=== PATIENT | female | born 1950 | race Caucasian/White ===

== ENCOUNTER 2021-04-13 04:30 | Inpatient (IN) ==
[2021-04-13] MEDS ORDERED: 0.9 % Sodium Chloride 1,000 ML IV ONE (04:36)
[2021-04-13] MEDS ORDERED: Ondansetron 4 MG/2 ML VIAL IVP ONE (04:36)
[2021-04-13 04:58] LABS: Basophils % 0.6 %; Eosinophils % 0.3 %; Hemoglobin 13.2 g/dL (11.5-15.4); Immature Granulocytes % 0.3 % (0-4); Lymphocytes % 30.1 %; Mean Corpuscular Hemoglobin 31.4 pg (28.0-33.3); Mean Corpuscular Volume 95.2 fL (83.0-100.0); Mean Platelet Volume 11.4 fL (9.4-12.4); Monocytes # 0.4 K/mcL (0.0-1.3); Neutrophils # 1.9 K/mcL (1.6-8.9); Platelet Count 118 K/mcL (140-400); Red Cell Distribution Width 14.2 % (11.5-14.5); Segmented Neutrophils % 56.7 %; White Blood Count 3.3 K/mcL (4.3-11.1)
[2021-04-13 05:19] LABS: Albumin 3.9 g/dL (3.5-5.7); Albumin/Globulin Ratio 1.1 (1.1-2.2); Bilirubin,Total 0.7 mg/dL (0.3-1.0); Calcium 8.3 mg/dL (8.6-10.3); Globulin 3.6 g/dL (2.4-3.5); Total Protein 7.5 g/dL (6.4-8.9)
[2021-04-13 05:26] LABS: Troponin I 0.05 ng/mL (< 0.04)
[2021-04-13] MEDS ORDERED: Isovue-370 500 ML BOTTLE IVP ONE (05:39)
[2021-04-13] MEDS ORDERED: Naloxone 0.4 MG/ML INJ IVP PRN (07:38)
[2021-04-13] MEDS ORDERED: Acetaminophen 325 MG TABLET PO PRN (07:38)
[2021-04-13] MEDS ORDERED: Dextrose Gel 15 GM/37.5 ML TUBE PO PRN ×2 (07:41)
[2021-04-13] MEDS ORDERED: *HR* Dextrose 50 % in Water (Syg) 50 ML SYRINGE IVP PRN (07:41)
[2021-04-13] MEDS ORDERED: D5% in Water 1,000 ML IVC PRN (07:41)
[2021-04-13] MEDS: Insulin LISPRO 300 UNITS/3 ML VIAL SUBQ SCH ×4 (09:05→20:06)
[2021-04-13] MEDS: Ondansetron 4 MG/2 ML VIAL IVP PRN (13:45)
[2021-04-13] MEDS: Pregabalin 50 MG CAPSULE PO SCH ×2 (13:45→20:05)
[2021-04-13] MEDS: *HR* Heparin 5,000 UNIT/ML VIAL SQ SCH ×2 (13:46→20:06)
[2021-04-13] MEDS: Ipratropium 1 PUFF INHALER IH SCH ×2 (15:29→22:56)
[2021-04-13] MEDS: Cholecalciferol (D-3) 1,000 UNIT (25MCG) TABLET PO SCH (20:05)
[2021-04-14 02:17] LABS: Basophils % 0.3 %; Eosinophils % 0.3 %; Hematocrit 34.5 % (35.3-44.9); Immature Granulocytes % 0.3 % (0-4); Lymphocytes % 31.3 %; Mean Corpuscular HGB Conc 33.6 g/dL (31.6-35.5); Mean Corpuscular Hemoglobin 31.7 pg (28.0-33.3); Mean Corpuscular Volume 94.3 fL (83.0-100.0); Mean Platelet Volume 11.2 fL (9.4-12.4); Monocytes # 0.4 K/mcL (0.0-1.3); Monocytes % 11.1 %; Neutrophils # 1.8 K/mcL (1.6-8.9); Platelet Count 125 K/mcL (140-400); Red Blood Count 3.66 M/mcL (3.82-4.97); Red Cell Distribution Width 14.4 % (11.5-14.5); Segmented Neutrophils % 56.7 %; White Blood Count 3.2 K/mcL (4.3-11.1)
[2021-04-14 02:27] LABS: Hemoglobin 11.6 g/dL (11.5-15.4)
[2021-04-14 02:34] LABS: Calcium 7.6 mg/dL (8.6-10.3); Magnesium 2.3 mg/dL (1.6-2.6); Phosphorous 2.6 mg/dL (2.7-4.5); Potassium 3.8 mEq/L (3.5-5.1)
[2021-04-14 02:37] LABS: Albumin 3.3 g/dL (3.5-5.7); Bilirubin,Direct 0.2 mg/dL (0.0-0.2); Bilirubin,Indirect 0.4 mg/dL (0.0-1.0); Bilirubin,Total 0.6 mg/dL (0.3-1.0); Globulin 3.3 g/dL (2.4-3.5); Total Protein 6.6 g/dL (6.4-8.9)
[2021-04-14 03:00] LABS: Platelet Estimate Normal (Normal)
[2021-04-14] MEDS: Ipratropium 1 PUFF INHALER IH SCH ×4 (04:10→19:37)
[2021-04-14] MEDS: *HR* Heparin 5,000 UNIT/ML VIAL SQ SCH ×3 (05:22→20:57)
[2021-04-14] MEDS: Insulin LISPRO 300 UNITS/3 ML VIAL SUBQ SCH ×4 (08:33→20:49)
[2021-04-14] MEDS: Loratadine 10 MG TABLET PO SCH (08:42)
[2021-04-14] MEDS: Cholecalciferol (D-3) 1,000 UNIT (25MCG) TABLET PO SCH ×2 (08:43→20:57)
[2021-04-14] MEDS: Pregabalin 50 MG CAPSULE PO SCH ×3 (08:43→20:57)
[2021-04-14] MEDS: BuPROPion XL (24 HR) 150 MG TABLET PO SCH (08:43)
[2021-04-14] MEDS ORDERED: Benzonatate 100 MG CAPSULE PO PRN (10:56)
[2021-04-14] MEDS: Dexamethasone Sodium Phos/PF 10 MG/ML VIAL IVP SCH (13:41)
[2021-04-15 00:41] LABS: Hemoglobin 12.2 g/dL (11.5-15.4); Mean Corpuscular Hemoglobin 31.4 pg (28.0-33.3); Mean Corpuscular Volume 95.4 fL (83.0-100.0); Mean Platelet Volume 11.2 fL (9.4-12.4); Platelet Count 137 K/mcL (140-400); Red Blood Count 3.88 M/mcL (3.82-4.97); Red Cell Distribution Width 14.4 % (11.5-14.5); White Blood Count 3.1 K/mcL (4.3-11.1)
[2021-04-15 02:06] LABS: BUN/Creatinine Ratio 18 (6-26); Blood Urea Nitrogen 31 mg/dL (8-23); C-Reactive Protein 61 mg/L (Less than 10); Calcium 7.8 mg/dL (8.6-10.3); Carbon Dioxide 17 mEq/L (23-29); Chloride 106 mEq/L (98-107); Ferritin 906 ng/mL (10-120); Glucose 166 mg/dL (70-105); Iron < 10 mcg/dL (50-170); Lactate Dehydrogenase 368 Units/L (140-271); Magnesium 2.6 mg/dL (1.6-2.6); Osmolality,Calculated 286 (280-300); Phosphorous 3.2 mg/dL (2.7-4.5); Potassium 4.4 mEq/L (3.5-5.1); Sodium 133 mEq/L (136-145); eGFR For African Americans 36 (> 60); eGFR For Non-African Americans 30 (> 60)
[2021-04-15 02:57] LABS: Transferrin 158 mg/dL (203-362)
[2021-04-15] MEDS: Ipratropium 1 PUFF INHALER IH SCH ×4 (03:33→21:33)
[2021-04-15] MEDS: *HR* Heparin 5,000 UNIT/ML VIAL SQ SCH ×3 (05:55→21:10)
[2021-04-15] MEDS: Dexamethasone Sodium Phos/PF 10 MG/ML VIAL IVP SCH (07:57)
[2021-04-15] MEDS: Cholecalciferol (D-3) 1,000 UNIT (25MCG) TABLET PO SCH ×2 (07:58→21:10)
[2021-04-15] MEDS: Pregabalin 50 MG CAPSULE PO SCH ×3 (07:58→21:10)
[2021-04-15] MEDS: Loratadine 10 MG TABLET PO SCH (07:59)
[2021-04-15] MEDS: Aspirin Enteric Coated 325 MG Tablet PO SCH (07:59)
[2021-04-15] MEDS: BuPROPion XL (24 HR) 150 MG TABLET PO SCH (07:59)
[2021-04-15] MEDS: Insulin LISPRO 300 UNITS/3 ML VIAL SUBQ SCH ×4 (08:01→21:10)
[2021-04-16 03:11] LABS: Hematocrit 40.5 % (35.3-44.9); Hemoglobin 12.9 g/dL (11.5-15.4); Mean Corpuscular HGB Conc 31.9 g/dL (31.6-35.5); Mean Corpuscular Hemoglobin 31.8 pg (28.0-33.3); Mean Corpuscular Volume 99.8 fL (83.0-100.0); Mean Platelet Volume 11.7 fL (9.4-12.4); Platelet Count 140 K/mcL (140-400); Red Blood Count 4.06 M/mcL (3.82-4.97); Red Cell Distribution Width 14.5 % (11.5-14.5)
[2021-04-16 03:15] LABS: White Blood Count 8.8 K/mcL (4.3-11.1)
[2021-04-16 03:17] LABS: Calcium 7.7 mg/dL (8.6-10.3); Potassium 4.6 mEq/L (3.5-5.1)
[2021-04-16] MEDS: Ipratropium 1 PUFF INHALER IH SCH ×4 (04:09→19:44)
[2021-04-16] MEDS: *HR* Heparin 5,000 UNIT/ML VIAL SQ SCH ×3 (05:42→21:31)
[2021-04-16] MEDS: Loratadine 10 MG TABLET PO SCH (09:11)
[2021-04-16] MEDS: Aspirin Enteric Coated 325 MG Tablet PO SCH (09:11)
[2021-04-16] MEDS: Cholecalciferol (D-3) 1,000 UNIT (25MCG) TABLET PO SCH ×2 (09:11→21:28)
[2021-04-16] MEDS: Pregabalin 50 MG CAPSULE PO SCH ×3 (09:11→21:29)
[2021-04-16] MEDS: BuPROPion XL (24 HR) 150 MG TABLET PO SCH (09:12)
[2021-04-16] MEDS: Insulin LISPRO 300 UNITS/3 ML VIAL SUBQ SCH ×4 (09:14→21:28)
[2021-04-16] MEDS: Dexamethasone Sodium Phos/PF 10 MG/ML VIAL IVP SCH (09:49)
[2021-04-16 10:36] LABS: Albumin 3.4 g/dL (3.5-5.7); Bilirubin,Direct 0.1 mg/dL (0.0-0.2); Bilirubin,Indirect 0.6 mg/dL (0.0-1.0); Bilirubin,Total 0.7 mg/dL (0.3-1.0); Globulin 3.4 g/dL (2.4-3.5); Total Protein 6.8 g/dL (6.4-8.9)
[2021-04-16 13:54] LABS: Adenovirus Not Detected (Not Detect); Bordetella Pertussis Not Detected (Not Detect); Chlamydophila pneumoniae Not Detected (Not Detect); Coronavirus 229E Not Detected (Not Detect); Coronavirus HKU1 Not Detected (Not Detect); Coronavirus NL63 Not Detected (Not Detect); Coronavirus OC43 Not Detected (Not Detect); Human Metapneumovirus Not Detected (Not Detect); Human Rhinovirus/Enterovirus Not Detected (Not Detect); Influenza A Subtype 2009 H1 Not Detected (Not Detect); Influenza B Not Detected (Not Detect); Mycoplasma pneumoniae Not Detected (Not Detect); Parainfluenza Virus 1 Not Detected (Not Detect); Parainfluenza Virus 2 Not Detected (Not Detect); Parainfluenza Virus 3 Not Detected (Not Detect); Parainfluenza Virus 4 Not Detected (Not Detect); Respiratory Syncytial Virus Not Detected (Not Detect)
[2021-04-16 13:57] LABS: SARS-CoV-2 DETECTED (Not Detect)
[2021-04-16] MEDS ORDERED: Remdesivir 200 MG in 0.9 % Sodium Chloride 100 ML IVPB ONE (15:00)
[2021-04-17] MEDS: Ipratropium 1 PUFF INHALER IH SCH ×4 (03:41→20:26)
[2021-04-17] MEDS: *HR* Heparin 5,000 UNIT/ML VIAL SQ SCH ×3 (06:31→19:52)
[2021-04-17] MEDS: Insulin LISPRO 300 UNITS/3 ML VIAL SUBQ SCH ×4 (07:45→22:18)
[2021-04-17] MEDS: Loratadine 10 MG TABLET PO SCH (09:02)
[2021-04-17] MEDS: Aspirin Enteric Coated 325 MG Tablet PO SCH (09:03)
[2021-04-17] MEDS: Cholecalciferol (D-3) 1,000 UNIT (25MCG) TABLET PO SCH ×2 (09:03→19:52)
[2021-04-17] MEDS: Pregabalin 50 MG CAPSULE PO SCH ×3 (09:03→19:51)
[2021-04-17] MEDS: BuPROPion XL (24 HR) 150 MG TABLET PO SCH (09:03)
[2021-04-17] MEDS: Dexamethasone Sodium Phos/PF 10 MG/ML VIAL IVP SCH (09:13)
[2021-04-17] MEDS ORDERED: Famotidine 20 MG/2 ML VIAL IVP ONE (12:29)
[2021-04-17] MEDS ORDERED: GuaiFENesin/Codeine Oral Soln 5 ML UDC PO PRN (12:31)
[2021-04-17] MEDS: Remdesivir 100 MG in 0.9 % Sodium Chloride 100 ML IVPB SCH (16:48)
[2021-04-17 17:46] LABS: Hemoglobin 12.3 g/dL (11.5-15.4); Mean Corpuscular HGB Conc 33.2 g/dL (31.6-35.5); Mean Corpuscular Hemoglobin 31.5 pg (28.0-33.3); Mean Corpuscular Volume 94.9 fL (83.0-100.0); Mean Platelet Volume 10.8 fL (9.4-12.4); Platelet Count 183 K/mcL (140-400); Red Cell Distribution Width 14.6 % (11.5-14.5); White Blood Count 8.1 K/mcL (4.3-11.1)
[2021-04-17 17:59] LABS: Albumin 3.2 g/dL (3.5-5.7); Albumin/Globulin Ratio 0.9 (1.1-2.2); Bilirubin,Direct 0.2 mg/dL (0.0-0.2); Bilirubin,Indirect 0.5 mg/dL (0.0-1.0); Bilirubin,Total 0.7 mg/dL (0.3-1.0); Calcium 7.8 mg/dL (8.6-10.3); Globulin 3.5 g/dL (2.4-3.5); Potassium 4.8 mEq/L (3.5-5.1); Total Protein 6.7 g/dL (6.4-8.9)
[2021-04-18] MEDS: Ipratropium 1 PUFF INHALER IH SCH ×4 (03:41→20:40)
[2021-04-18] MEDS: *HR* Heparin 5,000 UNIT/ML VIAL SQ SCH ×3 (05:11→21:30)
[2021-04-18 05:34] LABS: Basophils % 0.2 %; Hematocrit 39.2 % (35.3-44.9); Hemoglobin 12.8 g/dL (11.5-15.4); Lymphocytes % 11.5 %; Mean Corpuscular HGB Conc 32.7 g/dL (31.6-35.5); Mean Corpuscular Hemoglobin 30.9 pg (28.0-33.3); Mean Corpuscular Volume 94.7 fL (83.0-100.0); Monocytes # 0.4 K/mcL (0.0-1.3); Monocytes % 4.3 %; Neutrophils # 7.1 K/mcL (1.6-8.9); Platelet Count 199 K/mcL (140-400); Red Blood Count 4.14 M/mcL (3.82-4.97); Red Cell Distribution Width 14.4 % (11.5-14.5); White Blood Count 8.6 K/mcL (4.3-11.1)
[2021-04-18 05:51] LABS: Potassium 4.8 mEq/L (3.5-5.1)
[2021-04-18 05:53] LABS: Albumin 3.3 g/dL (3.5-5.7); Albumin/Globulin Ratio 0.9 (1.1-2.2); Bilirubin,Direct 0.2 mg/dL (0.0-0.2); Bilirubin,Indirect 0.5 mg/dL (0.0-1.0); Bilirubin,Total 0.7 mg/dL (0.3-1.0); Globulin 3.6 g/dL (2.4-3.5); Total Protein 6.9 g/dL (6.4-8.9)
[2021-04-18] MEDS: Insulin LISPRO 300 UNITS/3 ML VIAL SUBQ SCH ×4 (08:51→19:54)
[2021-04-18] MEDS ORDERED: dexAMETHasone 4 MG TABLET PO SCH (09:00)
[2021-04-18] MEDS: Loratadine 10 MG TABLET PO SCH (09:22)
[2021-04-18] MEDS: Cholecalciferol (D-3) 1,000 UNIT (25MCG) TABLET PO SCH ×2 (09:22→19:43)
[2021-04-18] MEDS: Pregabalin 50 MG CAPSULE PO SCH (09:22)
[2021-04-18] MEDS: Aspirin Enteric Coated 325 MG Tablet PO SCH (09:22)
[2021-04-18] MEDS: BuPROPion XL (24 HR) 150 MG TABLET PO SCH (09:23)
[2021-04-18] MEDS ORDERED: TOCILIZUMAB 800 MG in 0.9 % Sodium Chloride 100 ML IVPB ONE (12:00)
[2021-04-18] MEDS: Remdesivir 100 MG in 0.9 % Sodium Chloride 100 ML IVPB SCH (14:48)
[2021-04-18] MEDS: Pregabalin 75 MG CAPSULE PO SCH (19:43)
[2021-04-18] MEDS: Chloraseptic Spray 177 ML BOTTLE MM PRN (20:45)
[2021-04-18] MEDS ORDERED: Dexmedetomidine HCl 400 MCG/100 ML MLS IVC ONE (22:51)
[2021-04-18] MEDS ORDERED: Dexmedetomidine HCl 400 MCG/100 ML MLS IVC SCH (23:00)
[2021-04-18 23:49] LABS: ABG Base Excess -4 mEq/L (-2 to 3); ABG HCO3 21 mEq/L (21-27); ABG Oxygen Saturation 89 % (95-98); ABG PCO2 36 mmHg (35-45); ABG PH 7.38 pH Units (7.32-7.45); ABG PO2 58 mmHg (85-104); ABG TCO2 22 mEq/L (20-26)
[2021-04-19] MEDS: Ipratropium 1 PUFF INHALER IH SCH ×4 (03:40→19:46)
[2021-04-19] MEDS: *HR* Heparin 5,000 UNIT/ML VIAL SQ SCH ×3 (05:39→21:42)
[2021-04-19 06:47] LABS: Basophils % 0.2 %; Hematocrit 39.3 % (35.3-44.9); Hemoglobin 13.2 g/dL (11.5-15.4); Lymphocytes % 7.7 %; Mean Corpuscular HGB Conc 33.6 g/dL (31.6-35.5); Mean Corpuscular Hemoglobin 31.6 pg (28.0-33.3); Platelet Count 209 K/mcL (140-400); Red Blood Count 4.18 M/mcL (3.82-4.97); Red Cell Distribution Width 14.2 % (11.5-14.5); Segmented Neutrophils % 87.1 %; White Blood Count 9.2 K/mcL (4.3-11.1)
[2021-04-19 06:48] LABS: Lymphocytes # 0.7 K/mcL (0.6-4.6); Monocytes # 0.4 K/mcL (0.0-1.3)
[2021-04-19 07:08] LABS: Albumin 3.3 g/dL (3.5-5.7); Albumin/Globulin Ratio 0.8 (1.1-2.2); Bilirubin,Direct 0.2 mg/dL (0.0-0.2); Bilirubin,Indirect 0.5 mg/dL (0.0-1.0); Bilirubin,Total 0.7 mg/dL (0.3-1.0); Globulin 3.9 g/dL (2.4-3.5); Potassium 5.5 mEq/L (3.5-5.1); Total Protein 7.2 g/dL (6.4-8.9)
[2021-04-19] MEDS ORDERED: hydrALAZINE 10 MG TABLET PO PRN (08:31)
[2021-04-19] MEDS: Aspirin Enteric Coated 325 MG Tablet PO SCH (13:15)
[2021-04-19] MEDS: Loratadine 10 MG TABLET PO SCH (13:15)
[2021-04-19] MEDS: Pregabalin 75 MG CAPSULE PO SCH ×2 (13:16→21:49)
[2021-04-19] MEDS: Cholecalciferol (D-3) 1,000 UNIT (25MCG) TABLET PO SCH ×2 (13:16→21:49)
[2021-04-19] MEDS: BuPROPion XL (24 HR) 150 MG TABLET PO SCH (13:17)
[2021-04-19] MEDS: Insulin LISPRO 300 UNITS/3 ML VIAL SUBQ SCH (13:17)
[2021-04-19] MEDS ORDERED: Insulin LISPRO 300 UNITS/3 ML VIAL SUBQ SCH (15:00)
[2021-04-19] MEDS: Remdesivir 100 MG in 0.9 % Sodium Chloride 100 ML IVPB SCH (15:48)
[2021-04-19 16:04] LABS: Calcium 7.8 mg/dL (8.6-10.3); Potassium 5.3 mEq/L (3.5-5.1)
[2021-04-19] MEDS: Dexmedetomidine HCl 400 MCG/100 ML MLS IVC SCH ×2 (17:00→23:10)
[2021-04-19] MEDS: Insulin DETEMIR 100 UNIT/ML X5UNITS SUBQ SCH (21:42)
[2021-04-19] MEDS: QUEtiapine Fumarate 25 MG TABLET PO SCH (21:49)
[2021-04-20] MEDS: Insulin LISPRO 300 UNITS/3 ML VIAL SUBQ SCH ×4 (00:47→16:43)
[2021-04-20] MEDS: Ipratropium 1 PUFF INHALER IH SCH ×4 (03:42→20:12)
[2021-04-20] MEDS: *HR* Heparin 5,000 UNIT/ML VIAL SQ SCH ×3 (05:36→20:46)
[2021-04-20 06:05] LABS: Basophils % 0.2 %; Hematocrit 41.7 % (35.3-44.9); Hemoglobin 14.3 g/dL (11.5-15.4); Immature Granulocytes % 1.2 % (0-4); Lymphocytes # 0.7 K/mcL (0.6-4.6); Lymphocytes % 5.3 %; Mean Corpuscular HGB Conc 34.3 g/dL (31.6-35.5); Mean Corpuscular Hemoglobin 31.1 pg (28.0-33.3); Mean Corpuscular Volume 90.7 fL (83.0-100.0); Mean Platelet Volume 11.3 fL (9.4-12.4); Monocytes # 0.6 K/mcL (0.0-1.3); Monocytes % 4.9 %; Neutrophils # 11.3 K/mcL (1.6-8.9); Platelet Count 202 K/mcL (140-400); Red Cell Distribution Width 13.7 % (11.5-14.5); Segmented Neutrophils % 88.4 %; White Blood Count 12.8 K/mcL (4.3-11.1)
[2021-04-20 06:45] LABS: Albumin 3.2 g/dL (3.5-5.7); Albumin/Globulin Ratio 0.9 (1.1-2.2); Bilirubin,Direct 0.2 mg/dL (0.0-0.2); Bilirubin,Indirect 0.4 mg/dL (0.0-1.0); Bilirubin,Total 0.6 mg/dL (0.3-1.0); Calcium 8.4 mg/dL (8.6-10.3); Globulin 3.7 g/dL (2.4-3.5); Potassium 5.4 mEq/L (3.5-5.1); Total Protein 6.9 g/dL (6.4-8.9)
[2021-04-20] MEDS: Loratadine 10 MG TABLET PO SCH (08:29)
[2021-04-20] MEDS: Aspirin Enteric Coated 325 MG Tablet PO SCH (08:29)
[2021-04-20] MEDS: Pregabalin 75 MG CAPSULE PO SCH ×2 (08:31→20:46)
[2021-04-20] MEDS: BuPROPion XL (24 HR) 150 MG TABLET PO SCH (08:31)
[2021-04-20] MEDS: Cholecalciferol (D-3) 1,000 UNIT (25MCG) TABLET PO SCH ×2 (08:31→20:46)
[2021-04-20] MEDS: Dexmedetomidine HCl 400 MCG/100 ML MLS IVC SCH ×2 (11:24→20:45)
[2021-04-20] MEDS: Remdesivir 100 MG in 0.9 % Sodium Chloride 100 ML IVPB SCH (15:54)
[2021-04-20] MEDS: Chloraseptic Spray 177 ML BOTTLE MM PRN (16:46)
[2021-04-20] MEDS: Insulin DETEMIR 100 UNIT/ML X5UNITS SUBQ SCH (20:46)
[2021-04-20] MEDS: QUEtiapine Fumarate 25 MG TABLET PO SCH (20:46)
[2021-04-21] MEDS: Insulin LISPRO 300 UNITS/3 ML VIAL SUBQ SCH ×4 (00:37→18:27)
[2021-04-21] MEDS: Ipratropium 1 PUFF INHALER IH SCH ×4 (03:41→20:10)
[2021-04-21] MEDS: *HR* Heparin 5,000 UNIT/ML VIAL SQ SCH ×3 (05:52→20:31)
[2021-04-21] MEDS: Dexmedetomidine HCl 400 MCG/100 ML MLS IVC SCH ×3 (06:20→22:25)
[2021-04-21 06:48] LABS: Basophils % 0.1 %; Eosinophils % 0.1 %; Hematocrit 41.5 % (35.3-44.9); Hemoglobin 14.1 g/dL (11.5-15.4); Immature Granulocytes % 0.6 % (0-4); Lymphocytes # 0.8 K/mcL (0.6-4.6); Lymphocytes % 7.5 %; Mean Corpuscular Hemoglobin 31.1 pg (28.0-33.3); Mean Corpuscular Volume 91.6 fL (83.0-100.0); Mean Platelet Volume 11.4 fL (9.4-12.4); Monocytes # 0.4 K/mcL (0.0-1.3); Neutrophils # 9.5 K/mcL (1.6-8.9); Platelet Count 214 K/mcL (140-400); Red Blood Count 4.53 M/mcL (3.82-4.97); Segmented Neutrophils % 87.7 %; White Blood Count 10.8 K/mcL (4.3-11.1)
[2021-04-21 07:03] LABS: Albumin 3.2 g/dL (3.5-5.7); Albumin/Globulin Ratio 0.8 (1.1-2.2); Bilirubin,Direct 0.2 mg/dL (0.0-0.2); Bilirubin,Indirect 0.4 mg/dL (0.0-1.0); Bilirubin,Total 0.6 mg/dL (0.3-1.0); Calcium 8.6 mg/dL (8.6-10.3); Globulin 3.8 g/dL (2.4-3.5)
[2021-04-21] MEDS: Aspirin Enteric Coated 325 MG Tablet PO SCH (07:39)
[2021-04-21] MEDS: Cholecalciferol (D-3) 1,000 UNIT (25MCG) TABLET PO SCH ×2 (07:39→20:37)
[2021-04-21] MEDS: Loratadine 10 MG TABLET PO SCH (07:39)
[2021-04-21] MEDS: Pregabalin 75 MG CAPSULE PO SCH ×2 (07:39→20:37)
[2021-04-21] MEDS: BuPROPion XL (24 HR) 150 MG TABLET PO SCH (07:39)
[2021-04-21] MEDS: QUEtiapine Fumarate 25 MG TABLET PO SCH (20:37)
[2021-04-21] MEDS: Insulin DETEMIR 100 UNIT/ML X5UNITS SUBQ SCH (20:58)
[2021-04-22] MEDS: Insulin LISPRO 300 UNITS/3 ML VIAL SUBQ SCH ×5 (01:10→23:18)
[2021-04-22] MEDS: Ipratropium 1 PUFF INHALER IH SCH ×4 (03:37→20:01)
[2021-04-22] MEDS: *HR* Heparin 5,000 UNIT/ML VIAL SQ SCH ×3 (05:43→23:18)
[2021-04-22] MEDS: Dexmedetomidine HCl 400 MCG/100 ML MLS IVC SCH (05:55)
[2021-04-22] MEDS: Cholecalciferol (D-3) 1,000 UNIT (25MCG) TABLET PO SCH ×2 (08:48→20:19)
[2021-04-22] MEDS: Aspirin Enteric Coated 325 MG Tablet PO SCH (08:48)
[2021-04-22] MEDS: Loratadine 10 MG TABLET PO SCH (08:48)
[2021-04-22] MEDS: BuPROPion XL (24 HR) 150 MG TABLET PO SCH (08:48)
[2021-04-22] MEDS: Pregabalin 75 MG CAPSULE PO SCH ×2 (08:48→20:19)
[2021-04-22 14:28] LABS: Potassium 6.2 mEq/L (3.5-5.1)
[2021-04-22] MEDS: Ondansetron 4 MG/2 ML VIAL IVP PRN (14:42)
[2021-04-22] MEDS ORDERED: Haloperidol Lactate 5 MG/ML VIAL IVP PRN (14:59)
[2021-04-22 17:05] LABS: Basophils % 0.1 %; Eosinophils % 0.1 %; Hematocrit 44.2 % (35.3-44.9); Hemoglobin 14.5 g/dL (11.5-15.4); Lymphocytes # 0.5 K/mcL (0.6-4.6); Lymphocytes % 3.3 %; Mean Corpuscular HGB Conc 32.8 g/dL (31.6-35.5); Mean Corpuscular Hemoglobin 30.5 pg (28.0-33.3); Mean Corpuscular Volume 92.9 fL (83.0-100.0); Mean Platelet Volume 11.7 fL (9.4-12.4); Monocytes # 0.2 K/mcL (0.0-1.3); Monocytes % 1.5 %; Neutrophils # 13.4 K/mcL (1.6-8.9); Platelet Count 199 K/mcL (140-400); Red Blood Count 4.76 M/mcL (3.82-4.97); Red Cell Distribution Width 13.9 % (11.5-14.5); White Blood Count 14.3 K/mcL (4.3-11.1)
[2021-04-22] MEDS ORDERED: Furosemide 40 MG/4 ML VIAL IVP STA (17:36)
[2021-04-22] MEDS ORDERED: Calcium Gluconate 1gm/50mL 1 GM/50 ML BAG IVPB ONE (17:41)
[2021-04-22 18:47] LABS: VBG HCO3 18 mEq/L (21-27); VBG PCO2 27 mmHg (41-51); VBG PH 7.43 pH Units (7.32-7.42); VBG PO2 125 mmHg (25-50)
[2021-04-22 19:49] LABS: Calcium 8.9 mg/dL (8.6-10.3); Potassium 5.3 mEq/L (3.5-5.1)
[2021-04-22] MEDS: Insulin DETEMIR 100 UNIT/ML X5UNITS SUBQ SCH (20:19)
[2021-04-22] MEDS: QUEtiapine Fumarate 25 MG TABLET PO SCH (20:19)
[2021-04-22 22:15] LABS: Calcium 9.6 mg/dL (8.6-10.3); Potassium 5.1 mEq/L (3.5-5.1)
[2021-04-23] MEDS: Dexmedetomidine HCl 400 MCG/100 ML MLS IVC SCH ×3 (00:29→14:50)
[2021-04-23 01:02] LABS: Basophils % 0.1 %; Eosinophils % 0.2 %; Hematocrit 45.4 % (35.3-44.9); Hemoglobin 14.9 g/dL (11.5-15.4); Immature Granulocytes % 0.5 % (0-4); Lymphocytes # 0.6 K/mcL (0.6-4.6); Lymphocytes % 5.1 %; Mean Corpuscular HGB Conc 32.8 g/dL (31.6-35.5); Mean Corpuscular Hemoglobin 30.7 pg (28.0-33.3); Mean Corpuscular Volume 93.6 fL (83.0-100.0); Mean Platelet Volume 11.6 fL (9.4-12.4); Monocytes # 0.3 K/mcL (0.0-1.3); Monocytes % 2.4 %; Neutrophils # 11.6 K/mcL (1.6-8.9); Platelet Count 189 K/mcL (140-400); Red Blood Count 4.85 M/mcL (3.82-4.97); Red Cell Distribution Width 13.9 % (11.5-14.5); Segmented Neutrophils % 91.7 %; White Blood Count 12.6 K/mcL (4.3-11.1)
[2021-04-23 02:18] LABS: Calcium 9.4 mg/dL (8.6-10.3)
[2021-04-23] MEDS: Ipratropium 1 PUFF INHALER IH SCH ×4 (03:47→20:21)
[2021-04-23 04:57] LABS: ABG Base Excess -3 mEq/L (-2 to 3); ABG HCO3 21 mEq/L (21-27); ABG Oxygen Saturation 91 % (95-98); ABG PCO2 34 mmHg (35-45); ABG PO2 60 mmHg (85-104); ABG TCO2 22 mEq/L (20-26); Blood Gas Modality BiLevel
[2021-04-23] MEDS: *HR* Heparin 5,000 UNIT/ML VIAL SQ SCH ×3 (06:09→20:09)
[2021-04-23] MEDS: Insulin LISPRO 300 UNITS/3 ML VIAL SUBQ SCH ×4 (06:10→23:54)
[2021-04-23] MEDS: Aspirin Enteric Coated 325 MG Tablet PO SCH (07:27)
[2021-04-23] MEDS: Loratadine 10 MG TABLET PO SCH (07:27)
[2021-04-23] MEDS: BuPROPion XL (24 HR) 150 MG TABLET PO SCH (07:28)
[2021-04-23] MEDS: Pregabalin 75 MG CAPSULE PO SCH (07:28)
[2021-04-23] MEDS: Cholecalciferol (D-3) 1,000 UNIT (25MCG) TABLET PO SCH ×2 (07:28→19:21)
[2021-04-23] MEDS ORDERED: SODIUM ZIRCONIUM CYCLOSILICATE 5 GM POWD.PACK PO SCH (09:00)
[2021-04-23] MEDS ORDERED: Morphine Sulfate Oral CONC 10 MG/0.5 ML ORAL.SYG SL PRN (09:08)
[2021-04-23 09:19] LABS: Bacteria,Urine Few per hpf (None-Few); Bilirubin,Urine Negative (Negative); Blood,Urine Trace (Negative); Clarity,Urine Turbid (Clear); Color,Urine Light-Yellow (Yellow); Glucose,Urine (UA) Normal (Normal); Ketones,Urine Negative (Negative); Leukocyte Esterase,Urine Large (Negative); Mucus,Urine Few per lpf (None-Few); Nitrite,Urine Positive (Negative); Protein,Urine Trace mg/dL (Neg-Trace); RBC,Urine 0-3 per hpf (0-3); Specific Gravity,Urine 1.017 (1.010-1.025); Squamous Epithelial Cell,Urine Few per hpf (None-Few); Urobilinogen,Urine Normal (Normal); WBC,Urine 15-30 per hpf (0-3)
[2021-04-23] MEDS: Sodium Bicarbonate 150 MEQ in Water for inj. (sterile) 1,000 ML IVC SCH (09:49)
[2021-04-23 10:17] LABS: Potassium,Urine 43.1 mEq/L; Sodium, Urine 108.3 mEq/L
[2021-04-23] MEDS: Pantoprazole 40 MG VIAL IVP SCH (17:35)
[2021-04-23] MEDS: QUEtiapine Fumarate 25 MG TABLET PO SCH (19:21)
[2021-04-23] MEDS: Insulin DETEMIR 100 UNIT/ML X5UNITS SUBQ SCH (20:10)
[2021-04-23 21:28] LABS: Calcium 9.3 mg/dL (8.6-10.3); Phosphorous 6.3 mg/dL (2.7-4.5)
[2021-04-24 01:36] LABS: Basophils % 0.2 %; Eosinophils # 0.3 K/mcL (0.0-0.6); Hematocrit 53.5 % (35.3-44.9); Immature Granulocytes % 0.6 % (0-4); Lymphocytes # 0.6 K/mcL (0.6-4.6); Lymphocytes % 4.3 %; Mean Corpuscular HGB Conc 31.4 g/dL (31.6-35.5); Mean Corpuscular Hemoglobin 31.2 pg (28.0-33.3); Mean Corpuscular Volume 99.4 fL (83.0-100.0); Mean Platelet Volume 12.4 fL (9.4-12.4); Monocytes # 0.2 K/mcL (0.0-1.3); Monocytes % 1.4 %; Neutrophils # 13.7 K/mcL (1.6-8.9); Nucleated Red Blood Cells 0.1 /100 WBC (0); Platelet Count 153 K/mcL (140-400); Red Blood Count 5.38 M/mcL (3.82-4.97); Segmented Neutrophils % 91.5 %; White Blood Count 14.9 K/mcL (4.3-11.1)
[2021-04-24 01:40] LABS: Hemoglobin 16.8 g/dL (11.5-15.4)
[2021-04-24] MEDS: Dexmedetomidine HCl 400 MCG/100 ML MLS IVC SCH ×4 (04:00→20:03)
[2021-04-24] MEDS: Ipratropium 1 PUFF INHALER IH SCH ×4 (04:22→20:14)
[2021-04-24] MEDS: Pantoprazole 40 MG VIAL IVP SCH (05:27)
[2021-04-24] MEDS: *HR* Heparin 5,000 UNIT/ML VIAL SQ SCH ×2 (05:27→11:29)
[2021-04-24] MEDS: Sodium Bicarbonate 150 MEQ in Water for inj. (sterile) 1,000 ML IVC SCH (05:28)
[2021-04-24 05:38] LABS: Calcium 9.1 mg/dL (8.6-10.3); Potassium 5.2 mEq/L (3.5-5.1)
[2021-04-24] MEDS: Insulin LISPRO 300 UNITS/3 ML VIAL SUBQ SCH ×2 (05:51→10:47)
[2021-04-24] MEDS: Cholecalciferol (D-3) 1,000 UNIT (25MCG) TABLET PO SCH (07:31)
[2021-04-24] MEDS: Aspirin Enteric Coated 325 MG Tablet PO SCH (07:31)
[2021-04-24] MEDS: Loratadine 10 MG TABLET PO SCH (07:31)
[2021-04-24] MEDS: BuPROPion XL (24 HR) 150 MG TABLET PO SCH (07:31)
[2021-04-24] MEDS ORDERED: Lidocaine -MPF 1% 5 ML AMPUL INFILT ONE (10:40)
[2021-04-24] MEDS ORDERED: cefTRIAXone 1,000 MG in 0.9 % Sodium Chloride Mini Bag 100 ML IVPB SCH (13:00)
[2021-04-24] MEDS ORDERED: Sodium Bicarbonate 150 MEQ in Water for inj. (sterile) 1,000 ML IVC SCH (13:15)
[2021-04-24] MEDS: Albumin 25% 12.5gm/50mL 12.5 GM/50 ML IV.SOLN IVPB SCH ×2 (15:18→23:21)
[2021-04-24 16:30] VITALS: BP 91/72; PULSE 78; TEMP 98
[2021-04-24 20:19] VITALS: O2SAT 86
[2021-04-24] MEDS: *HR* LORazepam 2 MG/ML VIAL IVP PRN (20:22)
[2021-04-24] MEDS: Morphine Sulfate 2 MG/ML SYRINGE IVP PRN (21:36)
[2021-04-25] MEDS: *HR* LORazepam 2 MG/ML VIAL IVP PRN (01:22)
[2021-04-25] MEDS: Dexmedetomidine HCl 400 MCG/100 ML MLS IVC SCH (01:23)
[2021-04-25] MEDS: Morphine Sulfate 2 MG/ML SYRINGE IVP PRN (01:40)
[2021-04-25] MEDS ORDERED: Pantoprazole 40 MG VIAL IVP SCH (09:00)
== END 2021-04-25 03:30 | disposition expired | DRG 871 ==
LOC: EMEROOARM 04:30 → 3BNU 04:30 → SUATTDRO 06:52 → 3BNU 08:02 → SUATTDRO 04-14 10:52 → 2NENU 04-17 21:36
PROVIDERS: ADMIT Pharmacist; ATTEND Internal Medicine